=== PATIENT | female | born 1990 | race Caucasian/White ===

== ENCOUNTER 2022-11-17 14:49 | Inpatient (IN) | payer MEDICAID ==
[~2022-11-17] VITALS: Ht 167.6 cm; Wt 114.8 kg
[2022-11-17] MEDS ORDERED: BUTORPHANOL TARTRATE 2 MG/ML VIAL IV PRN (15:15)
[2022-11-17] MEDS ORDERED: LIDOCAINE HCL 1% 20ML VIAL (Pyxis) INJ INFIL SCH (15:15)
[2022-11-17] MEDS ORDERED: METHYLERGONOVINE MALEATE 0.2 MG/ML IM PRN ×4 (15:15→20:00)
[2022-11-17] MEDS ORDERED: NALOXONE HCL 0.4 MG/ML 1ML VIAL IM PRN (15:15)
[2022-11-17] MEDS: LACTATED RINGERS 1,000 ML IV SCH ×2 (15:37→19:28)
[2022-11-17 15:42] LABS: CLARITY URINE CLEAR (CLEAR); COLOR URINE DARK YELLOW (YELLOW); KETONES URINE TRACE (NEGATIVE); LEUKOCYTE ESTERASE URINE 1+ (NEGATIVE); NITRITE URINE NEGATIVE (NEGATIVE); OCCULT BLOOD URINE 1+ (NEGATIVE); PROTEIN URINE 1+ (NEGATIVE); SPECIFIC GRAVITY URINE 1.028 (1.005-1.030)
[2022-11-17 15:51] LABS: BASOPHILS % 0.3 % (0.0-2.0); EOSINOPHILS % 0.7 % (0.0-5.0); HEMATOCRIT. 34.6 % (36.0-48.0); HEMOGLOBIN. 11.5 g/dL (12.0-16.0); LYMPHOCYTES % 18.6 % (20.0-50.0); MEAN CORPUSCULAR HEMOGLOBIN 27.8 pg (28.0-32.0); MEAN CORPUSCULAR VOLUME 83.6 fL (81.0-99.0); MEAN PLATELET VOLUME 10.2 fl (7.4-10.4); MONOCYTES % 7.6 % (2.0-8.0); NEUTROPHILS % 72.8 % (40.0-76.0); PLATELET 254 x1000/uL (130-400); RED BLOOD CELL COUNT 4.14 mill/uL (4.2-5.4)
[2022-11-17 15:52] LABS: *BARBITURATES SCREEN URINE NEGATIVE (NEGATIVE); *BENZODIAZEPINES SCREEN URINE NEGATIVE (NEGATIVE); *COCAINE SCREEN URINE NEGATIVE (NEGATIVE); METHADONE URINE SCREEN NEGATIVE (NEGATIVE); OPIATES URINE SCREEN NEGATIVE (NEGATIVE); PHENCYCLIDINE URINE SCREEN NEGATIVE (NEGATIVE)
[2022-11-17 15:57] LABS: *AMPHETAMINES SCREEN URINE PRESUMTIVE POSITIVE (NEGATIVE)
[2022-11-17 15:58] LABS: CANNABINOID URINE SCREEN PRESUMTIVE POSITIVE (NEGATIVE)
[2022-11-17] MEDS: OXYTOCIN 30 UNITS/500ML NS PMX 500 ML IV SCH ×2 (16:01→16:20)
[2022-11-17] MEDS ORDERED: OXYTOCIN 30 UNITS/500ML NS PMX 500 ML IV SCH (16:30)
[2022-11-17 16:35] LABS: HEPATITIS B SURFACE ANTIGEN NEGATIVE
[2022-11-17 16:47] LABS: INR 0.9; PARTIAL THROMBOPLASTIN TIME 25.6 sec (23.4-31.0); PROTHROMBIN TIME 10.1 sec (9.6-11.0)
[2022-11-17 17:35] VITALS: BP 124/84
[2022-11-17 20:00] VITALS: BP 121/70
[2022-11-17] MEDS ORDERED: BISACODYL 10MG SUPP PR PRN (20:00)
[2022-11-17] MEDS ORDERED: IBUPROFEN 400MG TABLET PO PRN (20:00)
[2022-11-17] MEDS ORDERED: INFLUENZA VACCINE 05/PF 0.5 ML SYRINGE IM ONE (21:00)
[2022-11-18] MEDS: IBUPROFEN 800MG TABLET PO PRN (02:23)
[2022-11-18 02:30] VITALS: BP 130/70
[2022-11-18 07:56] VITALS: BP 113/68
[2022-11-18] MEDS: PRENATAL VIT/FE FUMARATE/FA TABLET PO SCH (09:56)
[2022-11-18] MEDS: FERROUS SULFATE 325MG TABLET PO SCH ×2 (09:57→17:25)
[2022-11-18 11:15] LABS: BASOPHILS % 0.4 % (0.0-2.0); EOSINOPHILS % 1.1 % (0.0-5.0); HEMATOCRIT. 31.5 % (36.0-48.0); HEMOGLOBIN. 10.3 g/dL (12.0-16.0); LYMPHOCYTES % 19.2 % (20.0-50.0); MEAN CORPUSCULAR HEMOGLOBIN 27.8 pg (28.0-32.0); MEAN CORPUSCULAR VOLUME 84.7 fL (81.0-99.0); MEAN PLATELET VOLUME 10.2 fl (7.4-10.4); MONOCYTES % 7.6 % (2.0-8.0); NEUTROPHILS % 71.7 % (40.0-76.0); PLATELET 242 x1000/uL (130-400); RED BLOOD CELL COUNT 3.72 mill/uL (4.2-5.4); RED CELL DISTRIBUTION WIDTH 14.9 % (11.6-14.6)
[2022-11-18 16:00] VITALS: BP 128/84
[2022-11-18 20:00] VITALS: BP 128/68
[2022-11-18] MEDS: DOCUSATE SODIUM 100MG CAPSULE PO SCH ×2 (20:20→21:00)
[2022-11-19 04:00] VITALS: BP 127/72
[2022-11-19 09:30] VITALS: BP 124/74
[2022-11-19] MEDS: IBUPROFEN 800MG TABLET PO PRN (09:40)
[2022-11-19] MEDS: FERROUS SULFATE 325MG TABLET PO SCH (09:40)
[2022-11-19] MEDS: PRENATAL VIT/FE FUMARATE/FA TABLET PO SCH (09:40)
[2022-11-25 05:09] LABS: AMPHETAMINE CONF URINE Positive (.); CANNABINOID CONFIRMATION URINE Positive (.)
== END 2022-11-19 13:30 | disposition home or self-care (01) | DRG 560 ==
LOC: OBSVTOIN 14:49 → 8 EST LDRP 14:49 → 8EST 17:30
PROVIDERS: ADMIT Specialist; ATTEND Specialist
PROC: 10E0XZZ Delivery of Products of Conception, External Approach (ICD-10-PCS; principal; 2022-11-17)
DX: O60.14X0 Preterm labor third trimester with preterm delivery third trimester, not applicable or unspecified (principal); Z37.0 Single live birth; O99.324 Drug use complicating childbirth; O99.02 Anemia complicating childbirth; Z20.822 Contact with and (suspected) exposure to COVID-19; O77.0 Labor and delivery complicated by meconium in amniotic fluid; F12.10 Cannabis abuse, uncomplicated; F15.10 Other stimulant abuse, uncomplicated; Z3A.36 36 weeks gestation of pregnancy; Z83.3 Family history of diabetes mellitus
CPT/HCPCS: 36415; 80051; 80305; 80349; 81003; 85025; 86592; 86703; 86762; 86850; 86900; 87340; 87426; 90686; 99281; J0595; J2310; J3490; J7120; J2590